=== PATIENT | male | born 1955 | race Caucasian/White ===

== ENCOUNTER 2019-12-04 05:23 | Emergency (ER) | payer BC ==
[2019-12-04] MEDS ORDERED: ASPIRIN 81 MG CHEWABLE TABLETS PO ONE ×2 (05:28)
[2019-12-04] MEDS ORDERED: HEPARIN NA (PORCINE) 5,000 UNITS/ML 1ML VIAL IVPUSH PRN ×3 (05:28→05:29)
[2019-12-04] MEDS ORDERED: CLOPIDOGREL BISULFATE 300 MG TABLET PO ONE ×3 (05:28→05:37)
[2019-12-04] MEDS ORDERED: METOPROLOL TARTRATE 5 MG/5 ML VIAL IVPUSH ONE (05:28)
[2019-12-04] MEDS ORDERED: METOPROLOL TARTRATE 50 MG TABLET (FP) PO ONE (05:29)
[2019-12-04] MEDS ORDERED: HEPARIN INFUSION - 25,000 UNITS/500 ML INFUS.BAG IVPB SCH (05:30)
[2019-12-04] MEDS ORDERED: HEPARIN INFUSION - 25,000 UNITS/500 ML INFUS.BAG IVPB ONE (05:33)
[2019-12-04] MEDS ORDERED: CLOPIDOGREL BISULFATE 300 MG TABLET ONE ×2 (05:33→05:42)
[2019-12-04] MEDS ORDERED: ASPIRIN 81 MG CHEWABLE TABLETS ONE (05:33)
[2019-12-04] MEDS ORDERED: morphine CARPU-JECT 2 MG/1 ML DISP.SYRIN IVPUSH ONE (05:40)
[2019-12-04 05:41] LABS: BASO % 1.4 % (0-2.0); EOS % 0.5 % (0-4.5); HEMATOCRIT 44.5 % (35.4-49); HEMOGLOBIN 14.9 GM/dL (11.7-16.9); LYMPH % 10.9 % (8-40); MCH 28.5 pg (25.7-33.7); MCHC 33.4 g/dl (32.0-35.9); MEAN CELL VOLUME 85.3 fl (80-96); MEAN PLT VOLUME 8.7 fl (7.5-11.1); MONO % 4.9 % (3.8-10.2); NEUT % 82.3 % (42.8-82.8); PLATELET COUNT 270 K/MM3 (134-434); RBC 5.21 M/mm3 (4.00-5.60); RDW 14.5 % (11.9-15.9); WHITE BLOOD COUNT 11.2 K/mm3 (4.0-10.0)
--- NOTE | 2019-12-04 05:41 | PDOC ---
Attending Attestation - Resident Resident Name: Jonatan Menjivar - ED Attending Attestation I have performed the following: I have examined & evaluated the patient, The case was reviewed & discussed with the resident, I agree w/resident's findings & plan - HPI HPI: 12/04/19 05:41 Pt has CP that woke him from sleep 3.5 hrs ago Pt has no PMHx other than HTN and smoking He has no fam hx of IA Pt has no other complaints He is having active CP. - Physicial Exam PE: 12/04/19 05:42 PT is having an active STEMI [facility] called and Dr Thomas accepted the patient - Medical Decision Making 12/04/19 05:43 transfer to [facility] <Brenda Naylor - Last Filed: 12/04/19 06:30> Heart Score/ECG Review - ST and T ST Elevation Suggest: Acute Myocardial Infarct (ANTERIOR STEMI/TOMBSTONES with inferior reciprocal changes) - ECG Impressions Normal ECG: No Acute Myocardial Infarction: Anterior <Brenda Naylor - Last Filed: 12/04/19 06:30> Discharge - Transfer to Acute Care Facility Receiving Facility Name: [facility] Accepting Physician:: <Murray Lyle - Last Filed: 12/04/19 05:44> - Discharge Information Problems reviewed: Yes - Transfer to Acute Care Facility Receiving Facility Name: [facility] <Brenda Naylor - Last Filed: 12/04/19 06:30> - Discharge Information Clinical Impression/Diagnosis: STEMI (ST elevation myocardial infarction) Qualifiers: Involved coronary artery: unspecified coronary artery Qualified Code(s): I21.3 - ST elevation (STEMI) myocardial infarction of unspecified site Condition: Guarded Disposition: TRANSFER ACUTE CARE/OTHER HOSP
[2019-12-04 05:45] VITALS: BP 117/82; TEMP 97.6; BMI 24.2
[2019-12-04 05:48] LABS: INR 0.82 (0.83-1.09); PROTHROMBIN TIME (PATIENT) 9.6 SEC (9.7-13.0)
--- NOTE | 2019-12-04 05:50 | PDOC ---
History of Present Illness - General Chief Complaint: Chest Pain Stated Complaint: CHEST PAIN,DIFFICULTY BREATHING Time Seen by Provider: 12/04/19 05:31 - History of Present Illness Initial Comments: 12/04/19 05:41 64yo male with a PMH of HTN and HLD presents to the [facility] ED with chest pain and shortness of breath that awoke him from sleep at 2am this morning. Reports burning substernal pain, no radiation. Associated SOB, sweating, lightheadedness, b/l arm numbness. No associated n/v, abdominal pain. PMH/PSH: as above Home Medications Medication Instructions Recorded Aspirin [ASA -] 81 mg PO DAILY 02/04/17 Atenolol [Tenormin -] 50 mg PO DAILY 02/04/17 Allergies Allergy/AdvReac Type Severity Reaction Status Date / Time No Known Allergies Allergy Verified 02/04/17 12:48 ROS GENERAL/CONSTITUTIONAL: No fever or chills. No weakness. HEAD, EYES, EARS, NOSE AND THROAT: No change in vision. No ear pain or discharge. No sore throat. CARDIOVASCULAR: No chest pain or shortness of breath RESPIRATORY: No cough, wheezing, or hemoptysis. GASTROINTESTINAL: No nausea, vomiting, diarrhea or constipation. GENITOURINARY: No dysuria, frequency, or change in urination. MUSCULOSKELETAL: No joint or muscle swelling or pain. No neck or back pain. SKIN: No rash NEUROLOGIC: No headache, vertigo, loss of consciousness, or change in strength/sensation. ENDOCRINE: No increased thirst. No abnormal weight change HEMATOLOGIC/LYMPHATIC: No anemia, easy bleeding, or history of blood clots. ALLERGIC/IMMUNOLOGIC: No hives or skin allergy. PE GENERAL: Awake, alert, and fully oriented, in no acute distress HEAD: No signs of trauma, normocephalic, atraumatic EYES: PERRLA, EOMI, sclera anicteric, conjunctiva clear ENT: Auricles normal inspection, hearing grossly normal, nares patent, oropharynx clear without exudates. Moist mucosa NECK: Normal ROM, supple, no lymphadenopathy, JVD, or masses LUNGS: No distress, speaks full sentences, clear to auscultation bilaterally HEART: Regular rate and rhythm, normal S1 and S2, no murmurs, rubs or gallops, peripheral pulses normal and equal bilaterally. ABDOMEN: Soft, nontender, normoactive bowel sounds. No guarding, no rebound. No masses EXTREMITIES : Normal inspection, Normal range of motion, no edema. No clubbing or cyanosis. NEUROLOGICAL: Normal speech, no focal sensorimotor deficits SKIN: Warm, Dry, normal turgor, no rashes or lesions noted Vital Signs Temp Pulse Resp BP Pulse Ox 97.6 F 101 H 16 117/82 96 12/04/19 05:31 12/04/19 05:31 12/04/19 05:31 12/04/19 05:31 12/04/19 05:31 MDM: 64yo male with a PMH of HTN and HLD presents to the [facility] ED with chest pain and shortness of breath that awoke him from sleep at 2am this morning. EKG in triage is STEMI: NSR, rate 98, left axis deviation, QTc 505, RBBB, ST elevations in I, aVR, aVL, V2-V6 with reciprocal change in II, III, and aVF. -[facility] called and transfer initiated -As per cardiology recs, will give aspirin 325, plavix 600, heparin drip -Will also give 1mg morphine IV for pain -oxygen -CBC, CMP, mg, coags, BNP, trops 12/04/19 05:54 [facility] arrived and will transport the patient to [facility] Past History - Medical History Allergies/Adverse Reactions: Allergies Allergy/AdvReac Type Severity Reaction Status Date / Time No Known Allergies Allergy Verified 02/04/17 12:48 Home Medications: Ambulatory Orders Aspirin [ASA -] 81 mg PO DAILY 02/04/17 Atenolol [Tenormin -] 50 mg PO DAILY 02/04/17 COPD: No HTN: Yes Hypercholesterolemia: Yes - Psycho-Social/Smoking History Smoking History: Never smoked Number of Cigarettes Smoked Daily: 15 Information on smoking cessation initiated: No - Substance Abuse Hx (Audit-C & DAST Scrn) How often the patient has a drink containing alcohol: Never Score: In Men: 4 or > Positive; In Women: 3 or > Positive: 0 Screen Result (Pos requires Nsg. Audit-10AR): Negative In the last yr the pt used illegal drug/Rx for NonMed reason: No Score: Yes response is considered Positive: 0 Screen Result (Positive result requires Nsg. DAST-10): Negative *Physical Exam - Vital Signs Last Vital Signs Temp Pulse Resp BP Pulse Ox 97.6 F 101 H 16 117/82 96 12/04/19 05:31 12/04/19 05:31 12/04/19 05:31 12/04/19 05:31 12/04/19 05:31 ED Treatment Course - LABORATORY CBC & Chemistry Diagram: 12/04/19 05:30 12/04/19 05:30 - Medications Given in the ED: ED Medications Discontinued Medications Generic Name Dose Route Start Last Admin Trade Name Edis PRN Reason Stop Dose Admin Aspirin 324 mg 12/04/19 05:28 12/04/19 05:36 Asa - PO 12/04/19 05:29 324 mg ONCE ONE Administration Clopidogrel Bisulfate 300 mg 12/04/19 05:33 12/04/19 05:36 Plavix - PO 12/04/19 05:34 300 mg ONCE ONE Administration Discharge - Discharge Information Problems reviewed: Yes Clinical Impression/Diagnosis: STEMI (ST elevation myocardial infarction) Qualifiers: Involved coronary artery: unspecified coronary artery Qualified Code(s): I21.3 - ST elevation (STEMI) myocardial infarction of unspecified site Condition: Guarded Disposition: TRANSFER ACUTE CARE/OTHER HOSP - Follow up/Referral - Patient Discharge Instructions - Post Discharge Activity
[2019-12-04 05:51] LABS: ACTIVATED PTT 39.8 SECONDS (25.2-36.5)
[2019-12-04] MEDS ORDERED: MORPHINE SULFATE 2 MG/ML VIAL ONE (05:55)
[2019-12-04 06:14] VITALS: PULSE 103
--- NOTE | 2019-12-04 21:23 | EKG ---
Test Reason : Blood Pressure : / mmHG Vent. Rate : 098 BPM Atrial Rate : 098 BPM P-R Int : 170 ms QRS Dur : 154 ms QT Int : 396 ms P-R-T Axes : 073 -75 043 degrees QTc Int : 505 ms NORMAL SINUS RHYTHM LEFT AXIS DEVIATION RIGHT BUNDLE BRANCH BLOCK ANTERIOR AND LATERAL INFARCT , POSSIBLY ACUTE LATERAL INJURY PATTERN ACUTE VT / STEMI ABNORMAL ECG WHEN COMPARED WITH ECG OF 04-FEB-2017 13:58, ANTEROLATERAL INFARCT IS NOW PRESENT ST NOW DEPRESSED IN INFERIOR LEADS DUE TO RECIPROCAL CHANGES ST ELEVATION NOW PRESENT IN ANTERIOR LEADS QT HAS LENGTHENED Confirmed by SERGO MI, UBALDO ([id number]) on 12/04/2019 9:23:03 PM Referred By: Confirmed By:UBALDO TROTTER MD
== END 2019-12-04 06:00 | disposition short-term general hospital (02) ==
LOC: JER 05:23
PROC: 3E033NZ Introduction of Analgesics, Hypnotics, Sedatives into Peripheral Vein, Percutaneous Approach (ICD-10-PCS; principal; 2019-12-04)
PROC: 3E033GC Introduction of Other Therapeutic Substance into Peripheral Vein, Percutaneous Approach (ICD-10-PCS; 2019-12-04)
DX: I21.3 ST elevation (STEMI) myocardial infarction of unspecified site (principal)
CPT/HCPCS: 36415; 85025; 85610; 85730; 93005; 93010; 99285-25; J1644

== ENCOUNTER 2020-08-16 22:45 | Inpatient (IN) | payer BC ==
[2020-08-16] MEDS ORDERED: LACTATED RINGERS SOLUTION 1,000 ML/1,000 ML INFUS.BAG IV ONE (23:07)
[2020-08-16] MEDS ORDERED: SODIUM CHLORIDE 0.9% 500 ML INFUS.BAG IV ONE (23:10)
[2020-08-16] MEDS ORDERED: DEXAMETHASONE SOD PHOSPHATE 10 MG/1 ML VIAL IVPUSH ONE (23:13)
[2020-08-16] MEDS ORDERED: DEXAMETHASONE SOD PHOSPHATE 10 MG/1 ML VIAL ONE (23:14)
[2020-08-16 23:18] LABS: BASO % 1.3 % (0-2.0); EOS % 2.7 % (0-4.5); HEMATOCRIT 36.7 % (35.4-49); HEMOGLOBIN 11.7 GM/dL (11.7-16.9); LYMPH % 43.2 % (8-40); MCH 26.3 pg (25.7-33.7); MCHC 31.9 g/dl (32.0-35.9); MEAN CELL VOLUME 82.2 fl (80-96); MEAN PLT VOLUME 9.3 fl (7.5-11.1); MONO % 9.4 % (3.8-10.2); NEUT % 43.4 % (42.8-82.8); PLATELET COUNT 301 K/MM3 (134-434); RBC 4.46 M/mm3 (4.00-5.60); RDW 15.4 % (11.9-15.9); WHITE BLOOD COUNT 7.6 K/mm3 (4.0-10.0)
[2020-08-16 23:21] VITALS: BMI 22.2
[2020-08-16 23:25] LABS: INR 1.15 (0.83-1.09); PROTHROMBIN TIME (PATIENT) 13.9 SEC (9.7-13.0)
[2020-08-16] MEDS ORDERED: morphine CARPU-JECT 4 MG/1 ML DISP.SYRIN IVPUSH ONE (23:37)
[2020-08-16] MEDS ORDERED: morphine SULFATE 4 MG/ML VIAL ONE (23:40)
[2020-08-16 23:44] LABS: LACTIC ACID 3.1 mmol/L (0.4-2.0)
[2020-08-16 23:53] LABS: CALCIUM 8.5 mg/dL (8.5-10.1)
[2020-08-16 23:54] LABS: ALBUMIN 3.9 g/dl (3.4-5.0)
[2020-08-16 23:56] LABS: CREATININE 1.6 mg/dL (0.55-1.3)
[2020-08-16 23:57] LABS: BILIRUBIN,DIRECT 0.2 mg/dL (0.0-0.2)
[2020-08-16 23:58] LABS: BILIRUBIN,TOTAL 0.5 mg/dL (0.2-1); TOT PROT 7.1 g/dl (6.4-8.2)
[2020-08-17 00:02] LABS: N-TERMINAL BNP 10704.2 pg/ml (5-125)
[2020-08-17] MEDS ORDERED: morphine CARPU-JECT 4 MG/1 ML DISP.SYRIN IVPUSH ONE (00:05)
[2020-08-17] MEDS ORDERED: FUROSEMIDE 40 MG/4 ML INJECTABLE VIAL IVPUSH ONE (00:32)
[2020-08-17] MEDS ORDERED: FUROSEMIDE 40 MG/4 ML INJECTABLE VIAL ONE (00:44)
[2020-08-17] MEDS ORDERED: APIXABAN 5 MG TABLET PO ONE ×2 (02:24→10:00)
[2020-08-17 02:54] LABS: PH,URINE 5.5 (5.0-8.0); URINE APPEARANCE CLEAR; URINE BILIRUBIN NEGATIVE (NEGATIVE); URINE COLOR YELLOW; URINE GLUCOSE (UA) 2+ (NEGATIVE); URINE KETONE NEGATIVE (NEGATIVE); URINE LEUK ESTERASE NEGATIVE (NEGATIVE); URINE NITRITE NEGATIVE (NEGATIVE); URINE PROTEIN NEGATIVE (NEGATIVE); URINE UROBILINOGEN 0.2 mg/dL (0.2-1.0)
[2020-08-17] MEDS ORDERED: ALBUTEROL SO4 2.5/IPRATROPIUM 0.5 INH SOL 3 ML VIAL.NEB. NEB ONE ×2 (03:30→04:33)
[2020-08-17] MEDS ORDERED: BUDESONIDE/FORMETEROL FUMARATE 80/4.5 mcg INHALER IH ONE (03:30)
[2020-08-17] MEDS ORDERED: APIXABAN 5 MG TABLET ONE (04:33)
[2020-08-17 08:04] LABS: ALBUMIN 3.9 g/dl (3.4-5.0); CALCIUM 8.7 mg/dL (8.5-10.1)
[2020-08-17 08:05] LABS: BLOOD UREA NITROGEN 21.1 mg/dL (7-18)
[2020-08-17 08:08] LABS: CREATININE 1.6 mg/dL (0.55-1.3); MAGNESIUM 2.1 mg/dL (1.8-2.4)
[2020-08-17 08:09] LABS: BASO % 0.2 % (0-2.0); BILIRUBIN,TOTAL 0.5 mg/dL (0.2-1); EOS % 0.1 % (0-4.5); HEMATOCRIT 35.4 % (35.4-49); HEMOGLOBIN 11.7 GM/dL (11.7-16.9); LYMPH % 11.5 % (8-40); MCH 26.4 pg (25.7-33.7); MEAN PLT VOLUME 9.1 fl (7.5-11.1); MONO % 4.6 % (3.8-10.2); NEUT % 83.6 % (42.8-82.8); PLATELET COUNT 219 K/MM3 (134-434); RBC 4.42 M/mm3 (4.00-5.60); RDW 14.9 % (11.9-15.9); TOT PROT 7.3 g/dl (6.4-8.2); WHITE BLOOD COUNT 2.9 K/mm3 (4.0-10.0)
[2020-08-17] MEDS: APIXABAN 5 MG TABLET PO SCH ×2 (09:27→21:41)
[2020-08-17] MEDS ORDERED: ASPIRIN COATED 81 MG TABLET.EC PO SCH (10:30)
[2020-08-17] MEDS ORDERED: FUROSEMIDE 40 MG/4 ML INJECTABLE VIAL IVPUSH SCH (10:30)
[2020-08-17] MEDS ORDERED: MAGNESIUM SULF 50% (8.12 MEQ/2 ML-1 GM VIAL) IVPB ONE (11:16)
[2020-08-17] MEDS ORDERED: CLOPIDOGREL BISULFATE 75 MG TABLET (FP) PO SCH (13:15)
[2020-08-17] MEDS: CARVEDILOL 3.125 MG TABLET (FP) PO SCH ×2 (13:46→21:41)
[2020-08-17] MEDS ORDERED: CEFTRIAXONE 1 GM in DEXTROSE 5%-WATER - 50 ML IVPB SCH (18:00)
[2020-08-17] MEDS ORDERED: CEFTRIAXONE 1 GM in DEXTROSE 5%-WATER - 50 ML IVPB ONE (18:00)
[2020-08-17] MEDS ORDERED: AZITHROMYCIN IVPB 500 MG/250 ML BAG IVPB SCH (18:00)
[2020-08-17] MEDS ORDERED: AZITHROMYCIN IVPB 500 MG/250 ML BAG IVPB ONE (18:00)
[2020-08-17] MEDS ORDERED: ROSUVASTATIN CA 5 MG TABLET (FP) PO SCH (22:00)
[2020-08-18 02:53] VITALS: BP 99/70; PULSE 81; TEMP 98.1
[2020-08-18] MEDS ORDERED: PATIENT'S OWN MEDICATION (NON-FORMULARY) (Dapagliflozin Propanediol [Farxiga] 5 MG Tablet) PO SCH (10:00)
== END 2020-08-18 03:02 | disposition short-term general hospital (02) | DRG 291 ==
LOC: JER 22:45 → JERBED 08-17 01:37 → J4S 08-17 05:00
PROVIDERS: ADMIT Internal Medicine; ATTEND Internal Medicine
DX: I13.0 Hypertensive heart and chronic kidney disease with heart failure and stage 1 through stage 4 chronic kidney disease, or unspecified chronic kidney disease (principal); I50.41 Acute combined systolic (congestive) and diastolic (congestive) heart failure; N17.9 Acute kidney failure, unspecified; E78.5 Hyperlipidemia, unspecified; I25.2 Old myocardial infarction; J44.9 Chronic obstructive pulmonary disease, unspecified; R91.8 Other nonspecific abnormal finding of lung field; I45.10 Unspecified right bundle-branch block; I48.91 Unspecified atrial fibrillation; R00.0 Tachycardia, unspecified; I25.10 Atherosclerotic heart disease of native coronary artery without angina pectoris; R09.89 Other specified symptoms and signs involving the circulatory and respiratory systems; R42 Dizziness and giddiness; E11.22 Type 2 diabetes mellitus with diabetic chronic kidney disease; N18.9 Chronic kidney disease, unspecified; Z95.5 Presence of coronary angioplasty implant and graft; R94.31 Abnormal electrocardiogram [ECG] [EKG]
CPT/HCPCS: 36415; 71045-TC-FY; 80053; 81003; 82248; 82550; 82728; 82962; 83605; 83615; 83735; 83880; 84100; 84484; 85025; 85610; 85730; 86140; 87899; 93005; 93010; 93970-TC; 99285-25; C9803; J1100; U0003; U0005